=== PATIENT | female | born 1940 | race Two or more races ===

== ENCOUNTER 2024-03-08 11:47 | Emergency (ER) | payer BC, OTHER ==
[~2024-03-08] VITALS: Ht 149.9 cm; Wt 47.6 kg
[2024-03-08] MEDS ORDERED: LEVO-T50 MCG PO (13:12)
[2024-03-08] MEDS ORDERED: ATORVASTATIN CA40 MG PO (13:13)
[2024-03-08] MEDS ORDERED: NORVASC2.5 M1 PO (13:13)
[2024-03-08] MEDS ORDERED: OLMSRTN-AMLDPN1 EAC4 PO (13:13)
[2024-03-08] MEDS ORDERED: LEUCOVORIN CALCI5 MG PO (13:14)
[2024-03-08] MEDS ORDERED: TREXALL5 MG PO (13:14)
[2024-03-08] MEDS ORDERED: CHLORTHALIDONE25 MG PO (13:14)
[2024-03-08] MEDS ORDERED: MIRTAZAPINE7.5 MG PO (13:15)
[2024-03-08] MEDS ORDERED: BENZONATATE 200 MG CAPSULE PO ONE (13:45)
[2024-03-08] MEDS ORDERED: LEVALBUTEROL HCL 1.25 MG/3 ML SOLUTION IH ONE ×2 (13:45→14:59)
[2024-03-08 14:38] LABS: HEMATOCRIT 31.3 % (36.0-45.00); HEMOGLOBIN 10.4 g/dL (12.0-15.00); MEAN CELL VOLUME 90.9 fL (80.00-100.00); MEAN CORPUSCULAR HEMOGLOBIN 30.2 pg (27.00-32.0); MEAN CORPUSCULAR HGB CONC 33.2 g/dl (32.0-36.0); PLATELET COUNT 376 K/uL (150-450); RED BLOOD COUNT 3.44 M/uL (4.00-6.00); RED CELL DISTRIBUTION WIDTH 14.5 % (11.5-14.5)
[2024-03-08] MEDS ORDERED: PEPCID AC20 MG PO (16:03)
[2024-03-08] MEDS ORDERED: SINGULAIR10 MG PO (16:03)
[2024-03-08] MEDS ORDERED: LEVALBUTER0.63 MG/3 IH (16:03)
[2024-03-08] MEDS ORDERED: BENZONATATE200 M1 PO (16:03)
== END 2024-03-08 16:09 | disposition home or self-care (01) ==
LOC: ER 11:49
PROVIDERS: General Practice
DX: R05.9 Cough, unspecified (principal); Z20.822 Contact with and (suspected) exposure to COVID-19; I10 Essential (primary) hypertension